=== PATIENT | female | born 1955 | race Two or more races ===

== ENCOUNTER 2023-01-27 11:54 | Emergency (ER) | payer OTHER ==
[~2023-01-27] VITALS: Ht 154.9 cm; Wt 65.3 kg
[2023-01-27] MEDS ORDERED: MONTELUKAST SODI4 M1 PO (12:09)
[2023-01-27] MEDS ORDERED: GLUMETZA500 MG PO (12:09)
[2023-01-27] MEDS ORDERED: TIROSINT88 MCG PO (12:10)
[2023-01-27] MEDS ORDERED: TOPROL XL50 M1 PO (12:10)
[2023-01-27] MEDS ORDERED: ALL DAY ALLERGY10 M3 PO (12:10)
[2023-01-27] MEDS ORDERED: CRESTOR10 MG PO (12:11)
[2023-01-27] MEDS ORDERED: ZESTRIL10 M1 PO (12:11)
[2023-01-27] MEDS ORDERED: METFORMIN HCL500 M3 PO (12:12)
[2023-01-27 14:26] LABS: HEMATOCRIT 40.8 % (36.0-45.00); HEMOGLOBIN 13.9 g/dL (12.0-15.00); MEAN CELL VOLUME 89.5 fL (80.00-100.00); MEAN CORPUSCULAR HEMOGLOBIN 30.6 pg (27.00-32.0); MEAN CORPUSCULAR HGB CONC 34.2 g/dl (32.0-36.0); PLATELET COUNT 184 K/uL (150-450); RED BLOOD COUNT 4.55 M/uL (4.00-6.00); RED CELL DISTRIBUTION WIDTH 14.4 % (11.5-14.5)
[2023-01-27 14:35] LABS: CALCIUM 10.2 mg/dL (8.5-10.1); CREATININE SERUM 0.86 mg/dL (0.55-1.02); GFR 65.42; POTASSIUM 4.19 mEq/L (3.5-5.1)
[2023-01-27 15:19] LABS: PH,URINE 5.5 (5.0-8.0); URINE APPEARANCE Clear; URINE BILIRRUBIN Negative (NEGATIVE); URINE BLOOD Negative; URINE COLOR Dark Yellow; URINE LEUKOCYTE Negative; URINE NITRATE Negative; URINE PROTEIN Trace (NEGATIVE); URINE UROBILINOGEN 0.2 E.U./dl
[2023-01-27 15:20] LABS: URINE BACTERIA 2897.6 uL (0.0-1933); URINE EPITHELIAL CELLS 26.8 uL (0.0-38.8); URINE RBC 16.2 uL (0.0-20.8); URINE WBC 21.9 uL (0.0-23.2)
[2023-01-27 16:21] LABS: URINE GLUCOSE 500 MG/DL (NEGATIVE); URINE MUCUS MODERATE
[2023-01-27 16:22] LABS: URINE CRYSTALS NEGATIVE /HPF
== END 2023-01-27 16:36 | disposition home or self-care (01) ==
LOC: ER 11:54
PROVIDERS: General Practice
DX: R53.1 Weakness (principal); R53.83 Other fatigue; E11.9 Type 2 diabetes mellitus without complications; Z79.84 Long term (current) use of oral hypoglycemic drugs; I10 Essential (primary) hypertension; Z88.0 Allergy status to penicillin

== ENCOUNTER 2023-03-05 12:25 | Emergency (ER) | payer OTHER ==
[~2023-03-05] VITALS: Ht 154.9 cm; Wt 64.4 kg
[~2023-03-05 12:25] MED LIST: ALL DAY ALLERGY10 M3 PO; CRESTOR10 MG PO; GLUMETZA500 MG PO; METFORMIN HCL500 M3 PO; MONTELUKAST SODI4 M1 PO; TIROSINT88 MCG PO; TOPROL XL50 M1 PO; ZESTRIL10 M1 PO
[2023-03-05 19:15] LABS: HEMATOCRIT 39.4 % (36.0-45.00); HEMOGLOBIN 13.3 g/dL (12.0-15.00); MEAN CELL VOLUME 90.8 fL (80.00-100.00); MEAN CORPUSCULAR HEMOGLOBIN 30.7 pg (27.00-32.0); MEAN CORPUSCULAR HGB CONC 33.8 g/dl (32.0-36.0); PLATELET COUNT 210 K/uL (150-450); RED BLOOD COUNT 4.34 M/uL (4.00-6.00); RED CELL DISTRIBUTION WIDTH 14.4 % (11.5-14.5)
[2023-03-05 19:19] LABS: PH,URINE 5.5 (5.0-8.0); URINE APPEARANCE Cloudy; URINE BILIRRUBIN Negative (NEGATIVE); URINE BLOOD Negative; URINE COLOR Dark Yellow; URINE GLUCOSE Negative (NEGATIVE); URINE LEUKOCYTE Small; URINE NITRATE Negative; URINE PROTEIN 30 (NEGATIVE); URINE UROBILINOGEN 0.2 E.U./dl
[2023-03-05 19:24] LABS: URINE EPITHELIAL CELLS 127.8 uL (0.0-38.8); URINE RBC 4.7 uL (0.0-20.8); URINE WBC 187.3 uL (0.0-23.2)
[2023-03-05 19:37] LABS: CALCIUM 9.7 mg/dL (8.5-10.1); CREATININE SERUM 0.74 mg/dL (0.55-1.02); GFR 77.81; POTASSIUM 3.82 mEq/L (3.5-5.1)
[2023-03-05 19:54] LABS: URINE BACTERIA > 9821.5 uL (0.0-1933)
[2023-03-05] MEDS ORDERED: PEPCID AC20 MG PO (20:01)
[2023-03-05] MEDS ORDERED: ONDANSETRON HCL4 MG PO (20:01)
[2023-03-05] MEDS ORDERED: BACTRIM DS TAB1 EACH PO (20:01)
== END 2023-03-05 21:25 | disposition home or self-care (01) ==
LOC: ER 12:25
PROVIDERS: Nurse Practitioner Family
DX: R10.32 Left lower quadrant pain (principal); Z88.0 Allergy status to penicillin; E11.9 Type 2 diabetes mellitus without complications; Z79.84 Long term (current) use of oral hypoglycemic drugs; I10 Essential (primary) hypertension; J45.909 Unspecified asthma, uncomplicated; E03.9 Hypothyroidism, unspecified; E78.49 Other hyperlipidemia; M19.90 Unspecified osteoarthritis, unspecified site; K57.30 Diverticulosis of large intestine without perforation or abscess without bleeding
CPT/HCPCS: 36415; 74176; 96365; 99284; J2405; J3490

== ENCOUNTER 2023-03-11 10:16 | Emergency (ER) | payer OTHER ==
[~2023-03-11] VITALS: Ht 154.9 cm; Wt 64.4 kg
[~2023-03-11 10:16] MED LIST changes: +BACTRIM DS TAB1 EACH PO; +ONDANSETRON HCL4 MG PO; +PEPCID AC20 MG PO
[2023-03-11 11:19] LABS: HEMATOCRIT 40.6 % (36.0-45.00); HEMOGLOBIN 13.8 g/dL (12.0-15.00); MEAN CELL VOLUME 90.7 fL (80.00-100.00); MEAN CORPUSCULAR HEMOGLOBIN 30.9 pg (27.00-32.0); MEAN CORPUSCULAR HGB CONC 34.1 g/dl (32.0-36.0); PLATELET COUNT 228 K/uL (150-450); RED BLOOD COUNT 4.47 M/uL (4.00-6.00); RED CELL DISTRIBUTION WIDTH 14.7 % (11.5-14.5)
[2023-03-11 11:36] LABS: CREATININE SERUM 1.37 mg/dL (0.55-1.02); GFR 38.23; POTASSIUM 4.12 mEq/L (3.5-5.1)
[2023-03-11 11:59] LABS: PH,URINE 6.5 (5.0-8.0); URINE APPEARANCE Clear; URINE BILIRRUBIN Negative (NEGATIVE); URINE BLOOD Negative; URINE COLOR Yellow; URINE GLUCOSE Negative (NEGATIVE); URINE LEUKOCYTE Trace; URINE NITRATE Negative; URINE PROTEIN Trace (NEGATIVE); URINE UROBILINOGEN 0.2 E.U./dl
[2023-03-11 12:00] LABS: URINE BACTERIA 1627.7 uL (0.0-1933); URINE EPITHELIAL CELLS 63.9 uL (0.0-38.8); URINE RBC 7.3 uL (0.0-20.8); URINE WBC 24.1 uL (0.0-23.2)
== END 2023-03-11 14:51 | disposition home or self-care (01) ==
LOC: ER 10:17
PROVIDERS: General Practice
DX: R11.10 Vomiting, unspecified (principal); Z20.822 Contact with and (suspected) exposure to COVID-19; I10 Essential (primary) hypertension; E11.9 Type 2 diabetes mellitus without complications; Z79.84 Long term (current) use of oral hypoglycemic drugs; Z88.0 Allergy status to penicillin
CPT/HCPCS: 36415; 76700; 93005; 96365; 99284; J3490